=== PATIENT | male | born 1980 | race Caucasian/White ===

== ENCOUNTER 2022-04-10 07:30 | Outpatient (CLI) | payer OTHER, SELFPAY ==
--- NOTE | ~2022-04-10 | US_ITS ---
EXAMINATION: US abdomen complete DATE: 04/10/2022 08:40 INDICATION: Upper abdominal pain TECHNIQUE: Multiple grayscale and Doppler ultrasound images of the abdomen were obtained. COMPARISON: None available FINDINGS: Bowel gas obscures visualization of the pancreas. The visualized portions of the pancreas a re unremarkable. The liver is normal with normal echogenicity and echotexture. No surface nodularity. Normal hepatopetal flow in the main portal vein. The gallbladder is normal with no abnormal wall thi ckening, pericholecystic fluid or stones. The normal common bile duct measures 4 mm. There was no son ographic Hernandez sign. The visualized portions of the aorta and inferior vena cava are normal. The spleen is normal in appearance and measures 10.4 cm. The right kidney measures 12.4 x 5.4 x 5.3 c m. The left kidney measures 11.5 x 5.9 x 5.2 cm. The kidneys demonstrate normal parenchymal echogenic ity. There is no hydronephrosis. IMPRESSION: 1. No sonographic correlate for the patient's symptoms. Reviewed, dictated and finalized at location L. [employer]END[employer]
== END 2022-04-10 07:31 | disposition home or self-care (01) ==
PROVIDERS: PCP Emergency Medicine; Visit Provider Emergency Medicine
DX: R10.10 Upper abdominal pain, unspecified (principal)
CPT/HCPCS: 76700

== ENCOUNTER 2022-04-18 14:24 | Outpatient (CLI) | payer OTHER, SELFPAY ==
--- NOTE | ~2022-04-18 | NM_ITS ---
EXAMINATION: NM hepatobiliary wo pharm DATE: 04/18/2022 17:02 INDICATION: Right upper quadrant abdominal pain. COMPARISON: Ultrasound 04/10/2022 TECHNIQUE: 4.8 mCi Tc-99m mebrofenin (Choletec) was administered intravenously. Scintigraphic images of the abdomen were obtained for one hour. Then, the patient drank 8 oz Ensure, and imaging was cont inued for 60 minutes. FINDINGS: There is normal clearance of radiotracer from the blood pool. There is homogeneous tracer u ptake by the liver. Activity progresses to the bowel and gallbladder. Gallbladder ejection fraction (GBEF) was 63%. Note that with this technique, normal GBEF >= 33%. IMPRESSION: 1. Normal hepatobiliary scintigraphy. Reviewed, dictated and finalized at location A. K[employer] SP[employer]ER
== END 2022-04-18 14:25 | disposition home or self-care (01) ==
PROVIDERS: PCP Emergency Medicine; Visit Provider Surgery
DX: R10.11 Right upper quadrant pain (principal)
CPT/HCPCS: 78226; A9537